=== PATIENT | male | born 1975 | race Caucasian/White ===

== ENCOUNTER 2016-11-28 00:35 | Emergency (ER) | payer SELFPAY ==
--- NOTE | 2016-11-28 00:55 | EDM.PDOC ---
ED HPI GENERAL MEDICAL PROBLEM - General Chief Complaint: Headache Stated Complaint: HEAD PAIN Time Seen by Provider: 11/28/16 00:48 - History of Present Illness INITIAL COMMENTS - FREE TEXT/NARRATIVE: HISTORY AND PHYSICAL: History of present illness: Patient's 41-year-old male presents concerned right-sided head pain CT at this or last several days he had a fatty return to work removed on the preauricular area in the past he denies any visual disturbance trauma neck pain or stiffness fever chills nausea vomiting or other neurological signs or symptoms Review of systems: As per history of present illness and below otherwise all systems reviewed and negative. Past medical history: As per history of present illness and as reviewed below otherwise noncontributory. Surgical history: As per history of present illness and as reviewed below otherwise noncontributory. Social history: No reported history of drug or alcohol abuse. Family history: As per history of present illness and as reviewed below otherwise noncontributory. Physical exam: HEENT: Atraumatic, normocephalic, pupils reactive, negative for conjunctival pallor or scleral icterus, mucous membranes moist, throat clear, neck supple, nontender, trachea midline. Lungs: Clear to auscultation, breath sounds equal bilaterally, chest nontender. Heart: S1S2, regular, negative for clicks, rubs, or JVD. Abdomen: Soft, nondistended, nontender. Negative for masses or hepatosplenomegaly. Negative for costovertebral tenderness. Pelvis: Stable nontender. Genitourinary: Deferred. Rectal: Deferred. Extremities: Atraumatic, negative for cords or calf pain. Neurovascular unremarkable. Neuro: Awake, alert, oriented. Cranial nerves II through XII unremarkable. Cerebellum unremarkable. Motor and sensory unremarkable throughout. Exam nonfocal. Diagnostics: CT brain Therapeutics: None Impression: #1 cephalgia Definitive disposition and diagnosis as appropriate pending reevaluation and review of above. ED ROS GENERAL - Review of Systems Review Of Systems: ROS reveals no pertinent complaints other than HPI. ED EXAM, GENERAL - Physical Exam Exam: See Below (See dictation) Course - Orders/Labs/Meds Orders: Active Orders 24 hr Category Date Time Status Head wo Cont [CT] Stat Exams 11/28/16 00:53 Ordered Departure - Departure Time of Disposition: 00:54 Disposition: Home, Self-Care 01 Condition: Good Clinical Impression: Cephalgia - Discharge Information Forms: ED Department Discharge Additional Instructions: The following information is given to patients seen in the emergency department who are being discharged to home. This information is to outline your options for follow-up care. We provide all patients seen in our emergency department with a follow-up referral. The need for follow-up, as well as the timing and circumstances, are variable depending upon the specifics of your emergency department visit. If you don't have a primary care physician on staff, we will provide you with a referral. We always advise you to contact your personal physician following an emergency department visit to inform them of the circumstance of the visit and for follow-up with them and/or the need for any referrals to a consulting specialist. The emergency department will also refer you to a specialist when appropriate. This referral assures that you have the opportunity for followup care with a specialist. All of these measure are taken in an effort to provide you with optimal care, which includes your followup. Under all circumstances we always encourage you to contact your private physician who remains a resource for coordinating your care. When calling for followup care, please make the office aware that this follow-up is from your recent emergency room visit. If for any reason you are refused follow-up, please contact the [facility] emergency department at and asked to speak to the emergency department charge nurse. Follow-up primary medical doctor wanted today's return as needed as discussed - My Orders Last 24 Hours: My Active Orders 11/28/16 00:53 Head wo Cont [CT] Stat - Assessment/Plan Last 24 Hours: My Active Orders 11/28/16 00:53 Head wo Cont [CT] Stat
[2016-11-28 03:28] VITALS: BP 112/56
--- NOTE | 2016-11-28 15:07 | CT ---
EXAM DATE: 11/28/16 PATIENT'S AGE: 41 Patient: ANDI HERNANDEZ Facility: [place], [place] Site . Site : [id number] Study: CT Head [id number] 1:53:15 AM Ordering Physician: Sandeep Cee Final Report: INDICATION: Headache x1 week TECHNIQUE: CT head without contrast. COMPARISON: None FINDINGS: CSF spaces: Within normal limits for age. Brain parenchyma: The matute-white differentiation is normal. No sign of mass, hemorrhage, or midline shift. Skull base and calvarium: Pansinus disease. The visualized orbits are grossly unremarkable. No skull fractures. IMPRESSION: No intracranial abnormalities. Pansinus disease. Dictated by Ernesto Malave MD @ 11/28/2016 2:01:31 AM Dictated by: Ernesto Malave MD @ 11/28/2016 02:01:40 (Electronic Signature) Report Signed by Proxy. [facility]
== END 2016-11-28 03:20 | disposition home or self-care (01) ==
LOC: MW.ED 00:35
DX: R51 Headache (principal)
CPT/HCPCS: 70450; 70450-26; 99282; 99284-25

== ENCOUNTER 2022-01-20 20:00 | Inpatient (IN) | payer SELFPAY ==
[2022-01-20] MEDS ORDERED: Iopamidol 755 Mg/ML 100 ML Bottle IV ONE (20:01)
[2022-01-20] MEDS ORDERED: Sodium Chloride 0.9% 1,000 ML IV ONE (23:00)
[2022-01-20] MEDS ORDERED: Cefepime 50 ML IV ONE (23:00)
[2022-01-21] MEDS ORDERED: Sodium Chloride 0.9% 1,000 ML IV ONE ×3 (01:10→12:28)
[2022-01-21] MEDS ORDERED: Cefepime 50 ML IV ONE ×2 (10:28→21:00)
[2022-01-21] MEDS ORDERED: Lidocaine 5% 700 MG Patch TRDERM ONE (11:22)
[2022-01-21] MEDS ORDERED: Morphine 2 MG/ML SYRINGE IV ONE (11:32)
[2022-01-21] MEDS ORDERED: Enoxaparin 40 MG/0.4 ML Syringe SUBCUT ONE (12:20)
[2022-01-21] MEDS ORDERED: Pantoprazole 40 MG Tab.CR PO ONE (12:28)
[2022-01-21] MEDS ORDERED: traMADol 50 MG Tab PO ONE (20:50)
[2022-01-22] MEDS ORDERED: Cefepime 50 ML IV ONE ×3 (04:00→19:45)
[2022-01-22] MEDS ORDERED: Pantoprazole 40 MG Tab.CR PO ONE (07:30)
[2022-01-22] MEDS ORDERED: Lidocaine 5% 700 MG Patch TRDERM ONE (11:33)
[2022-01-22] MEDS ORDERED: Enoxaparin 40 MG/0.4 ML Syringe SUBCUT ONE (12:30)
== END 2022-01-23 14:10 | disposition home or self-care (01) | DRG 179 ==
LOC: MW.ED 20:00 → MW.ZCENSUS 01-21 02:13
PROVIDERS: ATTEND Internal Medicine
DX: U07.1 COVID-19 (principal); F17.210 Nicotine dependence, cigarettes, uncomplicated; M54.9 Dorsalgia, unspecified; F15.90 Other stimulant use, unspecified, uncomplicated; R00.0 Tachycardia, unspecified; Z88.1 Allergy status to other antibiotic agents; Z87.01 Personal history of pneumonia (recurrent)
CPT/HCPCS: 71045; 71045-26; 71275; 71275-26; 72100; 72100-26; 72148; 72148-26; A9270-GY; J0692; J1650; J2270; J7030; Q9967

== ENCOUNTER 2023-05-11 14:15 | Emergency (ER) | payer SELFPAY ==
[2023-05-11 14:26] VITALS: BP 108/80; PULSE 101
[2023-05-11] MEDS ORDERED: predniSONE 20 MG Tab PO ONE (14:39)
== END 2023-05-11 15:00 | disposition home or self-care (01) ==
LOC: MW.ED 14:15
DX: J32.9 Chronic sinusitis, unspecified (principal); I10 Essential (primary) hypertension; Z72.0 Tobacco use; Z88.1 Allergy status to other antibiotic agents
CPT/HCPCS: 99283; A9270

== ENCOUNTER 2023-06-04 13:08 | Emergency (ER) | payer SELFPAY ==
[2023-06-04 13:24] VITALS: BP 146/77; PULSE 98
== END 2023-06-04 13:37 | disposition home or self-care (01) ==
LOC: MW.ED 13:08
DX: M75.82 Other shoulder lesions, left shoulder (principal); I10 Essential (primary) hypertension; Z88.1 Allergy status to other antibiotic agents
CPT/HCPCS: 99282; 99283

== ENCOUNTER 2024-01-07 15:42 | Emergency (ER) | payer BC ==
[2024-01-07 15:54] VITALS: BP 123/82
[2024-01-07 16:40] LABS: CORONAVIRUS COVID-19 NAA NEGATIVE (NEGATIVE); INFLUENZA A NAA NEGATIVE (NEGATIVE); INFLUENZA B NAA NEGATIVE (NEGATIVE)
[2024-01-07 17:11] VITALS: PULSE 90
== END 2024-01-07 17:11 | disposition home or self-care (01) ==
LOC: MW.ED 15:42
DX: J40 Bronchitis, not specified as acute or chronic (principal); J32.9 Chronic sinusitis, unspecified; I10 Essential (primary) hypertension; Z79.899 Other long term (current) drug therapy; Z88.1 Allergy status to other antibiotic agents; Z75.8 Other problems related to medical facilities and other health care
CPT/HCPCS: 0240U; 71045; 87651; 99285; 99283